=== PATIENT | female | born 1980 | race Two or more races ===

== ENCOUNTER 2016-05-03 01:34 | Emergency (ER) | payer SELFPAY ==
[~2016-05-03] VITALS: Ht 157.5 cm; Wt 61.2 kg
[2016-05-03 01:35] VITALS: BP 125/70
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
[2016-05-03 02:00] VITALS: BP 125/70
== END 2016-05-03 02:00 | disposition home or self-care (01) ==
LOC: EDBD 01:34 → EMR 02:00
DX: F10.129 Alcohol abuse with intoxication, unspecified (principal); R53.83 Other fatigue; Z88.0 Allergy status to penicillin
CPT/HCPCS: 99284